=== PATIENT | male | born 1960 | race Caucasian/White ===

== ENCOUNTER 2025-08-18 07:00 | Day surgery (SDC) | payer OTHER ==
[2025-08-13 11:28] VITALS: BP 128/70
[~2025-08-18] VITALS: Ht 175.3 cm; Wt 68.0 kg
[~2025-08-18 07:00] MED LIST: ATACAND16 MG PO; WELLBUTRIN SR100 MG PO; ZETIA10 MG PO
[2025-08-18] MEDS ORDERED: BUPIVACAINE HCL 30 ML VIAL IJ ONE (08:45)
[2025-08-18] MEDS ORDERED: CEFTRIAXONE SODIUM 2,000 MG VIAL IV ONE (08:45)
[2025-08-18] MEDS ORDERED: METRONIDAZOLE/SODIUM CHLORIDE 500 MG/100 ML PIGGYBACK IV ONE (08:45)
[2025-08-18] MEDS ORDERED: ENOXAPARIN SODIUM 40 MG/0.4 ML SYRINGE SUBCUTANEO ONE (08:45)
[2025-08-18] MEDS ORDERED: POLY119PG PO (09:57)
[2025-08-18] MEDS ORDERED: CELEBREX200MG PO (09:57)
[2025-08-18] MEDS ORDERED: PERCOCET 5-3251 EACH PO (09:57)
[2025-08-18] MEDS ORDERED: NEURONTIN300 MG PO (09:57)
== END 2025-08-18 12:50 | disposition home or self-care (01) ==
LOC: CIR.AMB 07:00
PROVIDERS: ATTEND Surgery
DX: K40.91 Unilateral inguinal hernia, without obstruction or gangrene, recurrent (principal)
CPT/HCPCS: 49651; C1781